=== PATIENT | female | born 1975 | race Caucasian/White ===

== ENCOUNTER → 2021-12-29 | Day surgery (SDC) | payer OTHER ==
[~2021-12-29] VITALS: Ht 167.6 cm; Wt 61.2 kg
[~2021-12-29] MED LIST: AMETHYST 90-201 EACH PO; CULTURELLE1 EACH PO; DAILY VITAMIN1 EAC2 PO
[2021-12-29 08:25] LABS: HCG (URINE) SCREEN NEGATIVE (NEGATIVE)
[2021-12-29 08:34] LABS: HCT 43.9 % (37.0-47.0); HGB 14.7 g/dl (12.5-16.0); MCH 32.5 pg (25.0-31.0); MCHC 33.5 g/dL (32.0-36.0); MCV 96.9 fL (78.0-100.0); MPV 10.9 fL (6.0-9.5); RBC 4.53 M/uL (4.20-5.40); RDW 12.2 % (11.5-14.0)
== END | disposition home or self-care (01) ==
LOC: FAS 07:37
PROVIDERS: Surgery
DX: Z12.11 Encounter for screening for malignant neoplasm of colon (principal); Z80.0 Family history of malignant neoplasm of digestive organs
CPT/HCPCS: 36415; 84703; J2704; J7120